=== PATIENT | female | born 1980 | race Caucasian/White ===

== ENCOUNTER 2018-08-11 07:19 | Emergency (ER) | payer MEDICAID ==
[~2018-08-11] VITALS: Ht 162.6 cm; Wt 136.1 kg
[2018-08-11 08:23] VITALS: BP 134/77
== END 2018-08-11 09:22 | disposition home or self-care (01) ==
LOC: ER 07:19
DX: L02.414 Cutaneous abscess of left upper limb (principal); E11.9 Type 2 diabetes mellitus without complications

== ENCOUNTER 2019-08-25 18:30 | Emergency (ER) | payer MEDICAID ==
[~2019-08-25] VITALS: Ht 162.6 cm; Wt 127.0 kg
[2019-08-25 22:24] VITALS: BP 143/89
[2019-08-25] MEDS ORDERED: cefTRIAXone SOD 1,000 MG VL IM ONE (22:30)
== END 2019-08-25 23:01 | disposition home or self-care (01) ==
LOC: ER 18:30
DX: L02.412 Cutaneous abscess of left axilla (principal); E11.9 Type 2 diabetes mellitus without complications
CPT/HCPCS: 10060; 96372; 99283; J0696